=== PATIENT | female | born 1950 | race Caucasian/White ===

== ENCOUNTER 2020-06-22 22:24 | Emergency (ER) | payer MEDICARE, BC ==
[~2020-06-22 22:24] MED LIST: FLEXERIL 10 MG10 MG PO; IBUPROFEN800 MG PO; LISINOPRIL-HCT1 EAC2 PO; ZANTAC300 MG PO; ZYRTEC10 MG PO
[2020-06-22 22:49] LABS: HEMOGLOBIN 14.1 gm/dl (12.3-15.3); WHITE BLOOD COUNT 10.9 K/UL (4.5-11.0)
[2020-06-22 23:06] LABS: BUN/CREATININE RATIO 14 (0-10)
[2020-06-22] MEDS ORDERED: OMNICEF 300 MG300 MG PO (23:48)
== END 2020-06-23 00:05 | disposition home or self-care (01) ==
LOC: ER1 22:24
PROVIDERS: Physician Assistant
DX: E21.3 Hyperparathyroidism, unspecified (principal); E87.6 Hypokalemia; N39.0 Urinary tract infection, site not specified; R79.9 Abnormal finding of blood chemistry, unspecified; E78.5 Hyperlipidemia, unspecified; I10 Essential (primary) hypertension; E55.9 Vitamin D deficiency, unspecified; Z85.3 Personal history of malignant neoplasm of breast; Z90.49 Acquired absence of other specified parts of digestive tract; Z90.710 Acquired absence of both cervix and uterus; Z79.899 Other long term (current) drug therapy
CPT/HCPCS: 71045; 80053; 81001; 82550; 82553; 83735; 83874; 84439; 84443; 84484; 85025; 87086; 93005; 99285

== ENCOUNTER → 2021-04-26 | Outpatient (CLI) | payer MEDICARE, BC ==
[~2021-04-26] MED LIST changes: +OMNICEF 300 MG300 MG PO
== END ==
LOC: KOH-I 08:39
DX: K76.0 Fatty (change of) liver, not elsewhere classified (principal)
CPT/HCPCS: 76700